=== PATIENT | male | born 1985 | race African-American/Black ===

== ENCOUNTER 2020-07-11 23:35 | Emergency (ER) | payer OTHER ==
[~2020-07-11] VITALS: Ht 177.8 cm; Wt 82.0 kg
[2020-07-12] MEDS ORDERED: IBUPROFEN 600MG TABLET PO ONE (01:00)
[2020-07-12] MEDS ORDERED: LIDOCAINE HCL 1% 20ML VIAL (Pyxis) INJ INFIL ONE (01:00)
[2020-07-12 02:07] VITALS: BP 120/83
== END 2020-07-12 02:39 | disposition home or self-care (01) ==
LOC: ER 23:35
DX: S80.12XA Contusion of left lower leg, initial encounter (principal); S01.81XA Laceration without foreign body of other part of head, initial encounter; V43.62XA Car passenger injured in collision with other type car in traffic accident, initial encounter; Y93.89 Activity, other specified; Y92.414 Local residential or business street as the place of occurrence of the external cause
CPT/HCPCS: 12013; 73590; 99283; J3490

== ENCOUNTER 2020-07-18 11:41 | Emergency (ER) | payer MEDICAID, OTHER ==
[~2020-07-18] VITALS: Ht 182.9 cm; Wt 82.0 kg
[2020-07-18 11:44] VITALS: BP 123/89
== END 2020-07-18 12:54 | disposition home or self-care (01) ==
LOC: ER 12:15
DX: S01.01XD Laceration without foreign body of scalp, subsequent encounter (principal); S80.12XA Contusion of left lower leg, initial encounter; V89.2XXA Person injured in unspecified motor-vehicle accident, traffic, initial encounter; Y93.89 Activity, other specified; Y92.89 Other specified places as the place of occurrence of the external cause; Y99.8 Other external cause status
CPT/HCPCS: 99283